=== PATIENT | male | born 1960 | race Caucasian/White ===

== ENCOUNTER → 2020-09-20 | Outpatient (CLI) | payer OTHER ==
--- NOTE | 2020-09-20 09:44 | CT ---
EXAMINATION TYPE: CT chest wo con DATE OF EXAM: 09/20/2020 COMPARISON: NONE HISTORY: Solitary pulmonary nodule CT DLP: 549 mGycm. Automated Exposure Control for Dose Reduction was Utilized. TECHNIQUE: CT scan of the thorax is performed without IV contrast. FINDINGS: LUNGS: A few scattered small pulmonary nodules bilaterally. For reference there is just under 6 mm po sterior left lower lobe nodule image 49. For reference there is 4 mm subpleural nodule right middle l obe axial image 34. No definitive greater than 6 mm pulmonary nodules. No suspicious focal consolidat ion or groundglass opacities. No pleural effusion or pneumothorax seen bilaterally. MEDIASTINUM: Lack of IV contrast is noted to limit evaluation for mediastinal and especially hilar ad enopathy. There are no definitive greater than 1 cm hilar or mediastinal lymph nodes. No cardiomega ly or pericardial effusion is seen. Moderate coronary artery calcification in the LAD and right circu mflex artery should be correlated with additional cardiac risk factors. OTHER: Focal mild to moderate anterior and lateral spurring in the lower thoracic spine. IMPRESSION: There are a few small bilateral nodules largest measuring just under 6 mm in the posterio r aspect left lower lobe. Optional repeat CT in 12 months time is advised to reassess as per Fleischner Society recommendations .
== END | disposition home or self-care (01) ==
LOC: RADCTMAIN 08:13
PROVIDERS: ATTEND Physician Assistant
DX: R91.8 Other nonspecific abnormal finding of lung field (principal)
CPT/HCPCS: 71250

== ENCOUNTER → 2021-05-04 | Outpatient (CLI) | payer OTHER ==
--- NOTE | 2021-05-04 11:19 | XR ---
EXAMINATION TYPE: XR chest w obliques DATE OF EXAM: 05/04/2021 COMPARISON: 09/20/2020 HISTORY: Cough TECHNIQUE: Frontal lateral and bilateral oblique views are submitted views of the chest are obtained . FINDINGS: There is no focal air space opacity, pleural effusion, or pneumothorax seen. The cardiac silhouette size is within normal limits. The osseous structures are intact. Chronic rib deformities are seen. Heart size normal. No overt failure. Pulmonary nodules noted by previous CT scan are not s een by x-ray. Hyperinflation noted. IMPRESSION: No acute cardiopulmonary process. Pulmonary nodules noted by previous CT scan may be too small to see by standard x-ray. Correlate for mild COPD.
--- NOTE | 2021-05-04 11:59 | FL ---
EXAMINATION TYPE: FL barium swallow DATE OF EXAM: 05/04/2021 CLINICAL HISTORY: History of reflux and epigastric pain. History of hiatal hernia surgery repair 8 ye ars ago. Constant weakness and pain. TECHNIQUE: A single contrast esophagram is performed utilizing barium. A total of 19 seconds of flu oroscopic time was utilized during procedure and 90 images obtained COMPARISON: Chest CT September 20, 2020 FINDINGS: The esophagus shows satisfactory motility and emptying into the stomach. No abnormal outpo uching or diverticulum. No evidence of recurrent fixed hiatal hernia or stricture noted. No significa nt gastroesophageal reflux was seen during real time performance of this study. IMPRESSION: No significant abnormality is seen to account for patient's symptoms.
== END | disposition home or self-care (01) ==
LOC: RADXRMAIN 09:37
PROVIDERS: ATTEND Otolaryngology
DX: R10.13 Epigastric pain (principal); R05.9 Cough, unspecified
CPT/HCPCS: 71047; 74220

== ENCOUNTER → 2021-05-04 | Outpatient (CLI) | payer OTHER ==
--- NOTE | 2021-05-04 10:44 | CT ---
EXAMINATION TYPE: CT sinus wo con DATE OF EXAM: 05/04/2021 COMPARISON: None HISTORY: Headaches CT DLP: 654.4 mGycm CONTRAST: 0 mL of Isovue 300 The paranasal sinuses are examined in the axial plane at 2 mm thick sections. Reconstructed images i n the coronal plane were obtained. There is dental amalgam scatter artifact There is a small mucous retention cyst medial wall right maxillary sinus. A mucus retention cyst with in the anterior right sphenoid sinus. Mucosal thickening is within bilateral anterior ethmoid air mariana ls and left frontal sinus. The septum is evaluated. There is septal deviation to the left. A left septal spurring is present. The ostiomeatal units are patent. IMPRESSIONS: 1. Scattered areas of mucosal thickening. Correlate for chronic sinusitis.
== END | disposition home or self-care (01) ==
LOC: RADCTMAIN 09:29
PROVIDERS: ATTEND Family Medicine
DX: J34.89 Other specified disorders of nose and nasal sinuses (principal)
CPT/HCPCS: 70486

== ENCOUNTER → 2021-09-12 | Outpatient (CLI) | payer OTHER ==
--- NOTE | 2021-09-12 12:06 | P.STRESS ---
- Stress Test Note Stress Test Results/Findings: Exam Performed: stress test Exam Date: 09/12/21 Reason for Exam: FATIGUE UPON EXERTION Height: 5 ft 11 in Weight: 81.193 kg Protocol: CHERELLE Stage: 5 Duration of Exercise: 13:00 Resting Heart Rate: 66 Resting Blood Pressure: 127/47 Maximum Achieved Heart Rate: 156 Maximum Achieved Blood Pressure: 186/86 85% PMHR: 135 100% PMHR: 159 METS: 13.9 Technologist Comment: Stress Test Results/Findings: Patient underwent exercise stress EKG with a Cherelle protocol treadmill stress test. Patient exercised into Stage 5 for a total of 13 minutes reaching a total of came 13.9 METS. Patient's maximum heart rate was 156 which represented 98% age-predicted maximum heart rate. Stress EKG findings: At baseline patient's EKG showed normal sinus rhythm, normal axis, no significant ST or T wave abnormalities. At peak exercise, EKG showed nondiagnostic 0.[address] depressions in the inferior and lateral leads which is nondiagnostic. Conclusions: 1. Normal EKG response to exercise without evidence of inducible ischemia. 2. Excellent exercise capacity.
== END | disposition home or self-care (01) ==
LOC: RADNMMAIN 10:39
PROVIDERS: ATTEND Family Medicine
DX: R53.83 Other fatigue (principal); R07.89 Other chest pain
CPT/HCPCS: 93017

== ENCOUNTER → 2021-09-13 | Outpatient (CLI) | payer OTHER ==
--- NOTE | 2021-09-13 16:00 | CONS ---
CONSULTATION DATE OF SERVICE: 09/13/2021 This 61-year-old gentleman has been evaluated in [facility] for obstructive sleep apnea-hypopnea syndrome. HISTORY OF PRESENT ILLNESS/SLEEP-WAKE EVALUATION: The patient's usual sleep schedule is from 1 a.m. until 9 a.m. Usually no significant problems with falling asleep. No TV in bedroom. He sleeps on the side position. He snores and wakes up from sleep two times with episodes of nocturia. In the morning the patient wakes up tired, has difficulties paying attention, has problems with memory, concentration, irritability and anxiety. Portal Sleepiness Scale increased to 10. Recently the patient had a home sleep apnea test. I reviewed the results of the test. Evaluation time was below standard at 3 hours 47 minutes, considered to be not sufficient for a conclusion; it has been more than 4 hours. Apnea-hypopnea index is 14 with oxygen desaturation to 79%. PAST MEDICAL HISTORY: Positive for acid reflux, hiatal hernia, anxiety, nasal septum deviation. PAST SURGICAL HISTORY: None. SOCIAL HISTORY: Positive for smoking in the past several cigarettes a day; quit 5 years ago. Alcohol consumption: None at the present time. MEDICATIONS: Klonopin, Prilosec, fluticasone. FAMILY HISTORY: Stroke, cancer, lung problems. REVIEW OF SYSTEMS: Snoring, multiple awakenings from sleep, sleepiness during the day. Portal Sleepiness Scale is 10. No fevers. No double vision. No recent chest pain. No shortness of breath. No abdominal pain. No bleeding episodes. No blood in the urine. No seizure episodes. PHYSICAL EXAMINATION: GENERAL: Pleasant gentleman without distress. VITAL SIGNS: BP 145/86, HR 67, RR 16, height 5 feet 9-1/2 inches, weight 174.2 pounds, body mass index 25.3, temperature 98.0, oxygen saturation at room air 99%. HEENT: PERRLA, EOMI, evaluation of oropharynx showed tongue protrudes midline. Low position of soft palate; Mallampati III to IV. NECK: Supple, no JVD. Thyroid is not palpable. Neck measures 16 inches in circumference. LUNGS: Clear to percussion and to auscultation. Good air exchange. No wheezing or rhonchi. HEART: S1, S2 regular. No murmurs, gallops, or rubs. ABDOMEN: Soft and nontender. Bowel sounds are present. No organomegaly appreciated. EXTREMITIES: No clubbing or cyanosis. EQUIPMENT OPERATOR INTERMODAL YARD: Awake, alert, and oriented X3. Cranial nerves 2 to 7 intact. There is no fasciculation or atrophy. noted. No focal deficits observed. IMPRESSION: 1. Snoring, multiple awakenings from sleep, low position of soft palate, Mallampati III to IV, sleepiness, Portal Sleepiness Scale 10. Results of the sleep study in terms of time is not sufficient to make a conclusion. 2. Nasal septum deviation. 3. Acid reflux. 4. History of hiatal hernia. 5. Anxiety. 6. Blood pressure increased in the office today. PLAN: 1. Polysomnography for evaluation of patient's breathing during sleep. 2. CPAP/BiPAP titration if sleep study confirms obstructive sleep apnea-hypopnea syndrome. 3. Preferable position during sleep on the side. 4. No driving if patient feels any sleepiness. 5. I will see patient for follow up visit to explain results of testing and following plan. Thank you very much for referring this patient for consultation. Sincerely, Ashkan Weeks MD, PhD, FAASM Diplomat of [place] [employer] Sleep Medicine Board of [place] [employer] Digital Research Analyst of [facility] [place] MMODL / IJN: [id number] /
== END ==
LOC: SLEEP 13:54
PROVIDERS: ATTEND Internal Medicine
DX: G47.8 Other sleep disorders (principal); R06.83 Snoring; J34.2 Deviated nasal septum; K21.9 Gastro-esophageal reflux disease without esophagitis; F41.9 Anxiety disorder, unspecified; I10 Essential (primary) hypertension; Z87.19 Personal history of other diseases of the digestive system; Z87.891 Personal history of nicotine dependence
CPT/HCPCS: 99211

== ENCOUNTER → 2022-01-16 | Outpatient (CLI) | payer OTHER ==
--- NOTE | 2022-01-16 09:02 | CT ---
EXAMINATION TYPE: CT chest w con CT DLP: 273 mGycm, Automated exposure control for dose reduction was used. DATE OF EXAM: 01/16/2022 8:39 AM COMPARISON: CT chest 09/20/2020. CLINICAL INDICATION:Male, 61 years old with history of R91.1 SPN; PHH, Lung nodule TECHNIQUE: Multiple axial images were obtained through the chest following the administration of 70 c c of Isovue 300. Coronal and sagittal reformats reviewed. FINDINGS: LUNGS/ PLEURA: Stable bilateral pulmonary nodules measuring up to 5 mm. No new or enlarging pulmonary nodules. Index nodules include pleural-based right middle lobe 5 mm nodule (series 4, image 34). Lef t lower lobe 4 mm pulmonary nodule (series 4, image 41). Left lower lobe 5 mm pulmonary nodule (serie s 4, image 47). And left lower lobe 5 mm pulmonary nodule (series 4, image 50). No focal consolidatio n, pneumothorax, or pleural effusion. AIRWAY: Patent and unremarkable.. HEART: Size within normal limits. No pericardial effusion. Coronary arterial calcifications.. MEDIASTINUM: No gross evidence of adenopathy. VASCULATURE: No aortic aneurysm. MUSCULOSKELETAL: No acute osseous abnormalities. Multilevel degenerative changes of the visualized sp ine. SOFT TISSUES/LYMPH NODES: Unremarkable. LOWER NECK: No significant findings. UPPER ABDOMEN: No significant findings. IMPRESSION: Stable bilateral pulmonary nodules measuring up to 5 mm. No new or enlarging pulmonary nodules. Follo w-up as clinically warranted.
== END | disposition home or self-care (01) ==
LOC: RADCTMAIN 07:52
PROVIDERS: ATTEND Internal Medicine Critical Care Medicine
DX: R91.8 Other nonspecific abnormal finding of lung field (principal)
CPT/HCPCS: 71260; Q9967

== ENCOUNTER 2024-06-04 11:37 | Emergency (ER) | payer OTHER ==
[2024-06-04 11:47] VITALS: RESP 18
[2024-06-04 12:00] LABS: Basophils # (A) 0.1 k/uL (0-0.2); Basophils % (A) 1 %; Eosinophils # (A) 0.1 k/uL (0-0.7); Eosinophils % (A) 2 %; HGB 14.5 gm/dL (13.0-17.5); Lymphocytes % (A) 22 %; MCH 30.4 pg (25.0-35.0); MCHC 33.7 g/dL (31.0-37.0); MCV 90.4 fL (80.0-100.0); Mean Platelet Volume 6.7; Monocytes # (A) 0.4 k/uL (0-1.0); Monocytes % (A) 8 %; Neutrophils # (A) 3.1 k/uL (1.3-7.7); Neutrophils % (A) 65 %; Platelet Count 331 k/uL (150-450); RBC 4.76 m/uL (4.30-5.90); RDW 12.2 % (11.5-15.5); WBC 4.8 k/uL (3.8-10.6)
--- NOTE | 2024-06-04 12:25 | XR ---
Chest, 2 view. HISTORY: Chest pain. COMPARISON: 05/04/2021 TECHNIQUE: PA and lateral views the chest are obtained. FINDINGS: The lungs are clear and there is no consolidative or interstitial opacity. There is no pleural effusion or pneumothorax. The heart, pulmonary vasculature, mediastinum and debby appear normal. There are healed left sixth and seventh rib fractures. There are no acute fractures. IMPRESSION: No significant abnormality seen. No acute cardiopulmonary disease. [facility], , 06/04/2024 12:23 PM
[2024-06-04 12:27] LABS: Partial Thromboplastin Time 26.9 sec (22.0-30.0); Prothrombin Time 10.7 sec (10.0-12.5)
[2024-06-04 12:52] LABS: ALT 18 U/L (4-49); AST 22 U/L (17-59); African American GFR (CKD) >90 (>60 ml/min/1.73 sqM); Albumin 4.8 g/dL (3.5-5.0); Alkaline Phosphatase 55 U/L (38-126); Anion Gap 9 mmol/L; Blood Urea Nitrogen 8 mg/dL (9-20); Calcium 9.9 mg/dL (8.4-10.2); Carbon Dioxide 26 mmol/L (22-30); Chloride 97 mmol/L (98-107); Glucose 116 mg/dL (74-99); Magnesium 1.9 mg/dL (1.6-2.3); Non-African American GFR(CKD) >90 (>60 ml/min/1.73 sqM); Potassium 3.9 mmol/L (3.5-5.1); Sodium 132 mmol/L (137-145); Total Bilirubin 0.9 mg/dL (0.2-1.3); Total Protein 7.6 g/dL (6.3-8.2)
[2024-06-04 13:00] LABS: NT-Pro-B-Type Natriuretic Pept <20 pg/mL
--- NOTE | 2024-06-04 13:17 | ED ---
General Adult HPI - General Chief complaint: Chest Pain Stated complaint: Blurred vision, hypertension Time Seen by Provider: 06/04/24 13:00 Source: patient, RN notes reviewed, old records reviewed Mode of arrival: ambulatory Limitations: no limitations - History of Present Illness Initial comments: This is a 64-year-old male who presents to the emergency department stating that he just is not feeling right. Patient states has been ongoing for years. Patient states he has been changing his diet quite a bit to try to clean out and detox his system and just not feeling right. Patient states he has anxiety and occasionally that is associated with some chest tightness currently does not have any chest tightness. Patient states the symptoms of more lethargy and just not feeling right got a little worse since Friday. Patient denies shortness of breath. Patient has any fever chills or cough or patient has abdominal pain patient has nausea vomiting diarrhea. Patient states he has had a little bit of double vision that is very short-lived and states that it is usually associated with his anxiety. Patient states when he goes upstairs she is very fatigued he mentioned in the triage room that he was short of breath but he told me that he was not really shortness of breath it was more just fatigue and fatigue it seems worse since Friday. - Related Data Home Medications Medication Instructions Recorded Confirmed FLUoxetine HCL [PROzac] 10 mg PO DAILY 11/06/14 11/06/14 Omeprazole [PriLOSEC] 20 mg PO AC-BRKFST 11/06/14 11/06/14 clonazePAM [KlonoPIN] 0.5 mg PO DAILY 11/06/14 11/06/14 Allergies Allergy/AdvReac Type Severity Reaction Status Date / Time No Known Allergies Allergy Verified 06/04/24 11:42 Review of Systems ROS Statement: Those systems with pertinent positive or pertinent negative responses have been documented in the HPI. ROS Other: All systems not noted in ROS Statement are negative. Past Medical History Past Medical History: GERD/Reflux History of Any Multi-Drug Resistant Organisms: None Reported Past Surgical History: No Surgical Hx Reported Past Psychological History: Anxiety Smoking Status: Former smoker Past Alcohol Use History: None Reported Past Drug Use History: None Reported General Exam - General Exam Comments Initial Comments: GENERAL: Patient is well-developed and well-nourished. Patient is nontoxic and well- hydrated and is in no acute distress. ENT: Neck is soft and supple. No significant lymphadenopathy is noted. Oropharynx is clear. Moist mucous membranes. Neck has full range of motion without eliciting any pain. EYES: The sclera were anicteric and conjunctiva were pink and moist. Extraocular movements were intact and pupils were equal round and reactive to light. Eyelids were unremarkable. PULMONARY: Unlabored respirations. Good breath sounds bilaterally. No audible rales rhonchi or wheezing was noted. CARDIOVASCULAR: There is a regular rate and rhythm without any murmurs gallops or rubs. ABDOMEN: Soft and nontender with normal bowel sounds. SKIN: Skin is clear with no lesions or rashes and otherwise unremarkable. NEUROLOGIC: Patient is alert and oriented x3. Cranial nerves II through XII are grossly intact. Motor and sensory are also intact. Normal speech, volume and content. Symmetrical smile. MUSCULOSKELETAL: Normal extremities with adequate strength and full range of motion. No lower extremity swelling or edema. No calf tenderness. LYMPHATICS: No significant lymphadenopathy is noted PSYCHIATRIC: Normal psychiatric evaluation. Limitations: no limitations Course Vital Signs 06/04/24 11:42 Temperature 97.3 F L Pulse Rate 74 Respiratory 18 Rate Blood Pressure 152/96 O2 Sat by Pulse 99 Oximetry Medical Decision Making - Medical Decision Making EKG is interpreted by myself but EKG shows a sinus rhythm at 70 bpm ME interval is 201 QRS is 88 QT interval 357 QTc is 378. Patient's EKG shows no ST segment elevation or depression. Was pt. sent in by a medical professional or institution (, PA, AIRFIELD SERVICES OFFICER, urgent care, hospital, or penitentiary...) When possible be specific @ -No Did you speak to anyone other than the patient for history (EMS, parent, family, police, friend...)? What history was obtained from this source @ -No Did you review nursing and triage notes (agree or disagree)? Why? @ -I reviewed and agree with nursing and triage notes Were old charts reviewed (outside hosp., previous admission, EMS record, old EKG, old radiological studies, urgent care reports/EKG's, penitentiary records)? Report findings @ -No old charts were reviewed Differential Diagnosis? @ -Differential Weakness: Hypoglycemia, shock, sepsis, hyponatremia, anemia, infection, [place], ETOH, adverse medicine reaction, overdose, stroke, this is not meant to be an all-inclusive list. EKG interpreted by me (3pts min.). @ -As above X-rays interpreted by me (1pt min.). @ -Chest x-ray shows no acute abnormality CT interpreted by me (1pt min.). @ -None done U/S interpreted by me (1pt. min.). @ -None done What testing was considered but not performed or refused? (CT, X-rays, U/S, labs)? Why? @ -None What meds were considered but not given or refused? Why? @ -None Did you discuss the management of the patient with other professionals (professionals i.e. , PA, AIRFIELD SERVICES OFFICER, lab, RT, psych nurse, director of social work, photographic lithographer, teacher, security officer, manager rn case)? Give summary @ -No Was smoking cessation discussed for >3mins.? @ -No Was critical care preformed (if so, how long)? @ -No Were there social determinants of health that impacted care today? How? (Homelessness, low income, unemployed, alcoholism, drug addiction, transportation, low edu. Level, literacy, decrease access to med. care, intermediate, rehab)? @ -No Was there de-escalation of care discussed even if they declined (Discuss DNR or withdrawal of care, Hospice)? DNR status @ -No What co-morbidities impacted this encounter? (DM, HTN, Smoking, COPD, CAD, Cancer, CVA, ARF, Chemo, Hep., AIDS, mental health diagnosis, sleep apnea, morbid obesity)? @ -None Was patient admitted / discharged? Hospital course, mention meds given and route, prescriptions, significant lab abnormalities, going to OR and other pertinent info. @ -Patient sodium is slightly low. Other than that lab work was within normal range x-ray showed no acute normality. Patient states he is very anxious and he thinks everything is always wrong with him. Patient states he could just be his anxiety and has been ongoing for years so he will follow-up with his primary medical care doctor. Patient states currently is not having any symptoms. Undiagnosed new problem with uncertain prognosis? @ -No Drug Therapy requiring intensive monitoring for toxicity (Heparin, Nitro, Insulin, Cardizem)? @ -No Were any procedures done? @ -No Diagnosis/symptom? @ -Fatigue Acute, or Chronic, or Acute on Chronic? @ -Acute Uncomplicated (without systemic symptoms) or Complicated (systemic symptoms)? @ -Uncomplicated Side effects of treatment? @ -No Exacerbation, Progression, or Severe Exacerbation? @ -No Poses a threat to life or bodily function? How? (Chest pain, [place], [place], pneumonia, PE, COPD, DKA, ARF, appy, cholecystitis, CVA, Diverticulitis, Homicidal, Suicidal, threat to staff... and all critical care pts) @ -No Diagnosis/symptom? @ -Hyponatremia Acute, or Chronic, or Acute on Chronic? @ -Acute Uncomplicated (without systemic symptoms) or Complicated (systemic symptoms)? @ -Uncomplicated Side effects of treatment? @ -None Exacerbation, Progression, or Severe Exacerbation] @ -No Poses a threat to life or bodily function? @ -No - Lab Data Result diagrams: 06/04/24 11:52 06/04/24 11:49 Lab Results 06/04/24 06/04/24 06/04/24 Range/Units 11:49 11:49 11:49 WBC (3.8-10.6) k/uL RBC (4.30-5.90) m/uL Hgb (13.0-17.5) gm/dL Hct (39.0-53.0) % MCV (80.0-100.0) fL MCH (25.0-35.0) pg MCHC (31.0-37.0) g/dL RDW (11.5-15.5) % Plt Count (150-450) k/uL MPV Neutrophils % % Lymphocytes % % Monocytes % % Eosinophils % % Basophils % % Neutrophils # (1.3-7.7) k/uL Lymphocytes # (1.0-4.8) k/uL Monocytes # (0-1.0) k/uL Eosinophils # (0-0.7) k/uL Basophils # (0-0.2) k/uL PT 10.7 (10.0-12.5) sec INR 1.0 (<1.2) APTT 26.9 (22.0-30.0) sec Sodium 132 L (137-145) mmol/L Potassium 3.9 (3.5-5.1) mmol/L Chloride 97 L (98-107) mmol/L Carbon Dioxide 26 (22-30) mmol/L Anion Gap 9 mmol/L BUN 8 L (9-20) mg/dL Creatinine 0.76 (0.66-1.25) mg/dL Est GFR (CKD-EPI)AfAm >90 (>60 ml/min/1.73 sqM) Est GFR (CKD-EPI)NonAf >90 (>60 ml/min/1.73 sqM) Glucose 116 H (74-99) mg/dL Calcium 9.9 (8.4-10.2) mg/dL Magnesium 1.9 (1.6-2.3) mg/dL Total Bilirubin 0.9 (0.2-1.3) mg/dL AST 22 (17-59) U/L ALT 18 (4-49) U/L Alkaline Phosphatase 55 (38-126) U/L Troponin I <0.012 (0.000-0.034) ng/mL NT-Pro-B Natriuret Pep <20 pg/mL Total Protein 7.6 (6.3-8.2) g/dL Albumin 4.8 (3.5-5.0) g/dL TSH (0.465-4.680) mIU/L Urine Color Urine Appearance (Clear) Urine pH (5.0-8.0) Ur Specific [place] (1.001-1.035) Urine Protein (Negative) Urine Glucose (UA) (Negative) Urine Ketones (Negative) Urine Blood (Negative) Urine Nitrite (Negative) Urine Bilirubin (Negative) Urine Urobilinogen (<2.0) mg/dL Ur Leukocyte Esterase (Negative) 06/04/24 06/04/24 06/04/24 Range/Units 11:49 11:52 14:28 WBC 4.8 (3.8-10.6) k/uL RBC 4.76 (4.30-5.90) m/uL Hgb 14.5 (13.0-17.5) gm/dL Hct 43.0 (39.0-53.0) % MCV 90.4 (80.0-100.0) fL MCH 30.4 (25.0-35.0) pg MCHC 33.7 (31.0-37.0) g/dL RDW 12.2 (11.5-15.5) % Plt Count 331 (150-450) k/uL MPV 6.7 Neutrophils % 65 % Lymphocytes % 22 % Monocytes % 8 % Eosinophils % 2 % Basophils % 1 % Neutrophils # 3.1 (1.3-7.7) k/uL Lymphocytes # 1.0 (1.0-4.8) k/uL Monocytes # 0.4 (0-1.0) k/uL Eosinophils # 0.1 (0-0.7) k/uL Basophils # 0.1 (0-0.2) k/uL PT (10.0-12.5) sec INR (<1.2) APTT (22.0-30.0) sec Sodium (137-145) mmol/L Potassium (3.5-5.1) mmol/L Chloride (98-107) mmol/L Carbon Dioxide (22-30) mmol/L Anion Gap mmol/L BUN (9-20) mg/dL Creatinine (0.66-1.25) mg/dL Est GFR (CKD-EPI)AfAm (>60 ml/min/1.73 sqM) Est GFR (CKD-EPI)NonAf (>60 ml/min/1.73 sqM) Glucose (74-99) mg/dL Calcium (8.4-10.2) mg/dL Magnesium (1.6-2.3) mg/dL Total Bilirubin (0.2-1.3) mg/dL AST (17-59) U/L ALT (4-49) U/L Alkaline Phosphatase (38-126) U/L Troponin I (0.000-0.034) ng/mL NT-Pro-B Natriuret Pep pg/mL Total Protein (6.3-8.2) g/dL Albumin (3.5-5.0) g/dL TSH 0.688 (0.465-4.680) mIU/L Urine Color Light Yellow Urine Appearance Clear (Clear) Urine pH 6.5 (5.0-8.0) Ur Specific [place] 1.016 (1.001-1.035) Urine Protein Negative (Negative) Urine Glucose (UA) Negative (Negative) Urine Ketones Negative (Negative) Urine Blood Negative (Negative) Urine Nitrite Negative (Negative) Urine Bilirubin Negative (Negative) Urine Urobilinogen <2.0 (<2.0) mg/dL Ur Leukocyte Esterase Negative (Negative) Disposition Clinical Impression: Fatigue, Hyponatremia Disposition: HOME SELF-CARE Condition: Good Instructions (If sedation given, give patient instructions): Hyponatremia (ED), Fatigue (ED) Is patient prescribed a controlled substance at d/c from ED?: No Referrals: Cheikh Arguello DO [Primary Care Provider] - 1-2 days Time of Disposition: 15:15
[2024-06-04 14:44] LABS: Appearance,Urine Clear (Clear); Bilirubin,Urine Negative (Negative); Blood,Urine Negative (Negative); Color,Urine Light Yellow; Glucose,Urine (UA) Negative (Negative); Ketones,Urine Negative (Negative); Leukocyte Esterase,Urine Negative (Negative); Nitrite,Urine Negative (Negative); PH, Urine 6.5 (5.0-8.0); Protein,Urine Negative (Negative); Specific Gravity,Urine 1.016 (1.001-1.035); Urobilinogen,Urine <2.0 mg/dL (<2.0)
[2024-06-04 15:46] VITALS: BP 134/76; PULSE 70; TEMP 98.4
== END 2024-06-04 15:47 | disposition home or self-care (01) ==
LOC: EC 11:37
DX: E87.1 Hypo-osmolality and hyponatremia (principal); R53.83 Other fatigue; Z87.891 Personal history of nicotine dependence
CPT/HCPCS: 36415; 71046; 80053; 81003; 83735; 83880; 84443; 84484; 85025; 85610; 85730; 93005; 99285

== ENCOUNTER 2024-08-16 15:23 | Emergency (ER) | payer OTHER ==
[2024-08-16 15:33] VITALS: RESP 18
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
[2024-08-16 17:05] VITALS: BP 140/90; PULSE 65; TEMP 98.2
== END 2024-08-16 17:05 | disposition home or self-care (01) ==
LOC: EC 15:23
DX: S00.81XA Abrasion of other part of head, initial encounter (principal); Z87.891 Personal history of nicotine dependence; V43.52XA Car driver injured in collision with other type car in traffic accident, initial encounter
CPT/HCPCS: 70450; 72125; 99284

== ENCOUNTER → 2024-08-18 | Outpatient (CLI) | payer OTHER ==
[2024-08-18 23:25] LABS: Alternaria alternata IgE <0.10 kU/L; Aspergillus fumagatus IgE 1.36 kU/L; Birch IgE <0.10 kU/L; Cat Epith & Dander IgE <0.10 kU/L; Cladosporian herbarum IgE <0.10 kU/L; Clam IgE <0.10 kU/L; Cockroach IgE <0.10 kU/L; Codfish IgE <0.10 kU/L; Dog Dander IgE <0.10 kU/L; Egg White IgE <0.10 kU/L; Elm IgE <0.10 kU/L; Maple (Box Elder) IgE <0.10 kU/L; Oak IgE <0.10 kU/L; Peanut IgE <0.10 kU/L; Ragweed,Common IgE <0.10 kU/L; Red Top (Bentgrass) IgE <0.10 kU/L; Scallop IgE <0.10 kU/L; Shrimp IgE <0.10 kU/L; Soybean IgE <0.10 kU/L; Walnut IgE (Food) <0.10 kU/L
== END | disposition home or self-care (01) ==
LOC: LABWHC1 13:04
PROVIDERS: ATTEND Internal Medicine Critical Care Medicine
DX: J45.20 Mild intermittent asthma, uncomplicated (principal)
CPT/HCPCS: 36415; 82785; 85008; 86003